=== PATIENT | male | born 1995 | race Caucasian/White ===

== ENCOUNTER 2020-01-17 04:18 | Emergency (ER) | payer BC, SELFPAY ==
--- NOTE | ~2020-01-17 | XR_ITS ---
XR chest 2V DATE: 01/17/2020 04:51 INDICATION: Midsternal and left-sided chest pain, left arm pain and shortness of breath for 2 hours TECHNIQUE: PA and lateral views COMPARISON: 03/10/2012 two-view chest FINDINGS: Normal heart size. No hilar or mediastinal enlargement. No pulmonary infiltrate or consolid ation, pleural effusion or pulmonary vascular congestion or pneumothorax. Included skeletal structure s are unremarkable. IMPRESSION: No active cardiopulmonary disease Reviewed, dictated and finalized at [facility].
--- NOTE | ~2020-01-17 | CT_ITS ---
EXAMINATION: CTA chest PE protocol DATE: 01/17/2020 06:08 INDICATION: Severe pleuritic chest pain TECHNIQUE: Computed tomography angiography (CTA) of the chest was performed with 100 mL Omnipaque-350 intravenous contrast timed to evaluate the pulmonary arteries. Coronal maximum intensity projection 3D-reconstructions were created by the technologist. Automated exposure control and iterative reconst ruction technique were employed. Exam dose: 271.80 mGy-cm total exam DLP. COMPARISON: 01/17/2020 2 view chest FINDINGS: There is diagnostic contrast enhancement of the pulmonary arteries and no evidence of pulmo nary embolism. No thoracic aortic aneurysm or dissection. No hilar or mediastinal mass lesion or lymphadenopathy. Normal heart size. No pericardial or pleural effusion. No pulmonary infiltrate or consolidation or pulmonary mass density is evident. No suspicious osteolytic or osteoblastic lesions. IMPRESSION: No evidence of pulmonary embolism Reviewed, dictated and finalized at [facility]. Reviewed, dictated and finalized at [facility].
[2020-01-17 04:19] VITALS: BP 133/67; PULSE 94; RESP 16; TEMP 37.3; O2SAT 100
--- NOTE | 2020-01-17 04:20 | ED.CHESTPAIN ---
HPI - Chest Pain General Chief Complaint: Chest Pain <Vira Sanchez MD - Last Filed: 01/17/20 07:00> Stated Complaint: chest pain <Vira Sanchez MD - Last Filed: 01/17/20 07:00> Time Seen by Provider: 01/17/20 04:19 <Vira Sanchez MD - Last Filed: 01/17/20 07:00> Source: patient <Vira Sanchez MD - Last Filed: 01/17/20 07:00> Mode of arrival: ambulatory <Vira Sanchez MD - Last Filed: 01/17/20 07:00> Limitations: no limitations <Vira Sanchez MD - Last Filed: 01/17/20 07:00> History of Present Illness HPI narrative: Patient is a 25-year-old male who presents for evaluation of chest pain. Patient states chest pain started this evening approximately 2 hours ago while the patient was out drinking with friends. Patient states he has had 10 alcoholic beverages this evening. Patient denies any falls or chest wall trauma. Patient denies palpitations, nausea, shortness of breath. Patient reports pain with a deep breath, and pain when he pushes on his chest. Pain with bending and lifting. Pain is dull, aching in nature, sharp with a deep breath. Patient has a history of coronary artery disease. His father from a young age of a stroke. Patient denies any cocaine use. <Vira Sanchez MD - Last Filed: 01/17/20 07:00> Related Data Home Medications: Home Medications Medication Instructions Recorded Confirmed No Home Medications 01/17/20 01/17/20 <Vira Sanchez MD - Last Filed: 01/17/20 07:00> Allergies/Adverse Reactions: Allergies Allergy/AdvReac Type Severity Reaction Status Date / Time No Known Allergies Allergy Verified 01/17/20 07:32 <Vira Sanchez MD - Last Filed: 01/17/20 07:00> Review of Systems Review of Systems: Narrative: CONSTITUTIONAL: Denies fever, chills, or sweats. EYES: Denies visual changes, redness, or discharge. ENT: Reports mild congestion, denies sore throat CARDIOVASCULAR: Reports chest pain, denies palpitations, no edema RESPIRATORY: Denies cough or dyspnea. GASTROINTESTINAL: Denies abdominal pain, nausea, vomiting, or diarrhea. GENITOURINARY: Denies dysuria or hematuria. SKIN: Denies rash or itching. MUSCULOSKELETAL: Denies back pain, joint pain, or myalgia. NEUROLOGIC: Denies headache, numbness, or weakness. <Vira Sanchez MD - Last Filed: 01/17/20 07:00> [facility] Past Medical History Medical History: Medical History (Updated 01/17/20 @ 06:56 by Vira Sanchez MD) No pertinent past medical history <Vira Sanchez MD - Last Filed: 01/17/20 07:00> Surgical History Surgical History: Surgical History (Updated 01/17/20 @ 04:32 by Vira Sanchez MD) History of tonsillectomy <Vira Sanchez MD - Last Filed: 01/17/20 07:00> Family History Family History: Family History (Updated 06/05/18 @ 13:48 by DOCTOR UNKNOWN) Mother Diabetes mellitus Father Family history of cardiovascular disease Family history of kidney disease Other Family history of attention deficit hyperactivity disorder (ADHD) Family history of bipolar disorder <Vira Sanchez MD - Last Filed: 01/17/20 07:00> Social History Social History: Social History (Updated 01/17/20 @ 04:33 by Vira Sanchez MD) Smoking status: Never smoker Alcohol intake: current Alcohol use details: social Substance use: current Substance use type: marijuana Gender identity (if verbalized by the patient): Male <Vira Sanchez MD - Last Filed: 01/17/20 07:00> Exam Narrative: Exam Narrative: GENERAL: Awake, alert, conversant HEAD: Normocephalic, atraumatic. EYES: PERRLA and EOMI. ENT: Nares clear, no rhinorrhea or epistaxis. Mucous membranes moist. NECK: Supple. CHEST: No respiratory distress, breathing even and non labored, reproducible chest wall tenderness over the left chest, this exactly reproduces pain. No ecchymoses, no crepitus HEART: Regular rate, sinus rhythm ABDO
--- NOTE | 2020-01-17 04:31 | ECG_ITS ---
Measurements Intervals [place] Rate: 88 P: 71 NV: 145 QRS: 57 QRSD: 110 T: 42 QT: 343 QTc: 416 Interpretive Statements SINUS RHYTHM ST ELEVATION IN DIFFUSE LEADS, PROBABLY EARLY REPOLARIZATION BORDERLINE ECG Electronically Signed On 01-17-2020 7:13:31 CDT by Blas Hill D.O.
[2020-01-17] MEDS: ASPIRIN 81 MG CHEWABLE TABLET 324 MG PO (04:36)
[2020-01-17] MEDS: ONDANSETRON INJ 4 MG/2 ML VIAL IV PUSH (04:36)
[2020-01-17] MEDS: MORPHINE SULFATE 4 MG/ML INJ IV PUSH (04:36)
[2020-01-17] MEDS: SODIUM CHLORIDE 0.9% IV 1,000 ML 999 ML IV CONT (04:50)
[2020-01-17 05:00] LABS: Basophils Absolute Auto 0.1 K/mm3 (0.0-0.1); Basophils Percent Auto 0.5 % (0.2-1.2); Eosinophils Absolute Auto 0.2 K/mm3 (0-0.3); Eosinophils Percent Auto 2.2 % (0-4.4); Hematocrit 41.4 % (42.0-52.0); Hemoglobin 14.2 g/dL (14.0-18.0); Immature Granulocyte Absolute 0.03 K/mm3 (0.00-0.031); Immature Granulocyte Percent A 0.3 % (0-0.5); Lymphocytes Absolute Auto 2.96 K/mm3 (0.9-3.2); Lymphocytes Percent Auto 31.1 % (18.3-44.2); Mean Corpuscular HGB Conc 34.3 g/dl (32-36); Mean Corpuscular Hemoglobin 31.1 pg (26-34); Mean Corpuscular Volume 90.6 fl (80-100); Mean Platelet Volume 10.3 fl (7.4-10.4); Monocytes Absolute Auto 0.8 K/mm3 (0.1-0.6); Monocytes Percent Auto 8.1 % (2.6-8.5); Neutrophils Absolute Auto 5.5 K/mm3 (1.3-6.7); Neutrophils Percent Auto 57.8 % (45.5-73.1); Platelet Count Result 378 k/mm3 (150-375); Red Blood Count 4.57 M/mm3 (4.6-6.20); Red Cell Distribution Width 12.8 % (11.5-14.5); White Blood Count 9.5 K/mm3 (4.5-10.0)
[2020-01-17 05:12] LABS: Prothrombin Time 12.8 Seconds (11.1-14.7)
[2020-01-17 05:13] LABS: Partial Thromboplastin Time 35.2 SECONDS (22.3-36.8)
[2020-01-17 05:17] LABS: Alanine Aminotransferase 15 U/L (4-50); Albumin Level 4.5 g/dL (3.5-5.1); Alkaline Phosphatase 102 U/L (38-126); Aspartate Amino Transferase 25 U/L (17-59); Bilirubin,Total 0.6 mg/dL (0.2-1.3); Blood Urea Nitrogen 11 mg/dL (9-20); Carbon Dioxide 30 mmol/L (22-30); Chloride 100 mmol/L (98-107); Estimated CRCL calculation 145 ml/min; Estimated Glomerular Filt Rate > 60; Glucose 92 mg/dL (75-110); Sodium 139 mmol/L (137-145)
[2020-01-17 05:20] VITALS: BP 138/87; PULSE 79; RESP 17; O2SAT 99
[2020-01-17 05:20] LABS: Troponin I < 0.012 ng/mL (0.000-0.034)
--- NOTE | 2020-01-17 05:25 | PC.NURSE ---
pt states pain in left side of chest in increasing and is now in his shoulder blade. md notified. md gave this rn verbal order for repeat ekg.
--- NOTE | 2020-01-17 05:26 | ECG_ITS ---
Measurements Intervals [place] Rate: 80 P: 72 WI: 166 QRS: 56 QRSD: 104 T: 43 QT: 359 QTc: 416 Interpretive Statements SINUS RHYTHM NORMAL ECG Electronically Signed On 01-17-2020 7:13:44 CDT by Blas Hill D.O.
[2020-01-17] MEDS: KETOROLAC 15 MG/ML VIAL (*BKC) IV PUSH (06:33)
[2020-01-17 06:42] VITALS: BP 127/60; PULSE 88; RESP 21; O2SAT 97
[2020-01-17 07:33] VITALS: BP 127/58; PULSE 70; RESP 18; O2SAT 97
[2020-01-17 08:59] LABS: Troponin I < 0.012 ng/mL (0.000-0.034)
[2020-01-17 09:38] VITALS: BP 121/57; PULSE 60; RESP 16; O2SAT 98
== END 2020-01-17 09:47 | disposition home or self-care (01) ==
PROVIDERS: Emergency Medicine; Emergency Provider General Practice
DX: R07.89 Other chest pain (principal); R94.31 Abnormal electrocardiogram [ECG] [EKG]
CPT/HCPCS: 36415; 71046; 71275; 80053; 84484; 85025; 85610; 85730; 93005; 96361; 96374; 96375; 99284; A9270; J1885; J2270; J2405; J7030; Q9967

== ENCOUNTER 2020-01-25 08:21 | Emergency (ER) | payer BC, SELFPAY ==
--- NOTE | 2020-01-25 08:36 | ED.GENADULT ---
HPI - General Adult General Chief complaint: Unspecified Stated complaint: Pain in great toe/thumbs/left knee/shoulder Time Seen by Provider: 01/25/20 08:36 Source: patient Mode of arrival: ambulatory Limitations: no limitations History of Present Illness HPI narrative: 25-year-old male patient presents to the [facility] with complaints of joint pain for the past week and a half. Patient states that started one morning when he woke up having stiffness to his right thumb. Patient states that over the weekend his left knee swelled up and felt really warm to the touch. Patient states that he is also been having some tingling to the bottom of his feet, stiffness of the toes and feel like his feet are numb. Patient also states that when he woke up this morning he has been having joint pain to the left shoulder and elbow. Denies any fevers. Patient states he did have a tick bite to his perineal area about 2 to 3 months ago. Patient states that it did swell up about the size of a nickel. Patient states he is also had chills recently. Patient was seen in the ER about a week ago with chest pain which he states that everything came back negative. Patient states he has been taking Tylenol for symptoms which really has not helped much. Related Data Home Medications Medication Instructions Recorded Confirmed No Home Medications 01/17/20 01/25/20 Allergies Allergy/AdvReac Type Severity Reaction Status Date / Time No Known Allergies Allergy Verified 01/25/20 08:28 Review of Systems Review of Systems: Narrative: CONSTITUTIONAL: Denies fever, positive chills, denies sweats. EYES: Denies visual changes, redness, or discharge. ENT: Denies rhinorrhea, congestion, sore throat, or otalgia. CARDIOVASCULAR: Denies chest pain, palpitations, or edema. RESPIRATORY: Denies cough or dyspnea. GASTROINTESTINAL: Denies abdominal pain, nausea, vomiting, or diarrhea. GENITOURINARY: Denies dysuria or hematuria. SKIN: Denies rash or itching. MUSCULOSKELETAL: Denies back pain, positive joint pain, denies myalgia. NEUROLOGIC: Denies headache, positive numbness and tingling to bilateral feet, denies weakness. PSYCHIATRIC: Denies anxiety or depression. [facility] Past Medical History Medical History No pertinent past medical history Surgical History Surgical History History of tonsillectomy Family History Family History Mother Diabetes mellitus Father Family history of cardiovascular disease Family history of kidney disease Other Family history of attention deficit hyperactivity disorder (ADHD) Family history of bipolar disorder Social History Social History Smoking status: Never smoker Alcohol intake: current Substance use: current Substance use type: marijuana Gender identity (if verbalized by the patient): Male Comments At the time of my signature I agree with nursing past medical history, surgical, social, and family history. There is no relevant family history pertinent to the presenting complaint. Exam Narrative: Exam Narrative: GENERAL: Well-appearing, well-nourished, and in no acute distress. HEAD: Normocephalic, atraumatic. EYES: PERRLA and EOMI. ENT: Nares clear, no rhinorrhea or epistaxis. Mucous membranes moist. Posterior pharynx with no erythema, tonsil enlargement, exudates or lesions present. Bilateral TMs are clear no erythema or foreign bodies in the canal. NECK: Supple. No lymphadenopathy CHEST: Clear to auscultation. No respiratory distress. Patient able talk in clear complete sentences. HEART: Regular rate and rhythm. No murmur heard. Normal peripheral pulses. ABDOMEN: Soft, nontender, nondistended, normal active bowel sounds. EXTREMITIES: Patient is able to bear weight and ambulate without
[2020-01-25 08:42] VITALS: BP 131/68; PULSE 91; RESP 16; TEMP 37.2; O2SAT 100
== END 2020-01-25 09:01 | disposition short-term general hospital (02) ==
PROVIDERS: Emergency Provider Nurse Practitioner Family
DX: M25.541 Pain in joints of right hand (principal); M25.512 Pain in left shoulder; M25.522 Pain in left elbow; W57.XXXA Bitten or stung by nonvenomous insect and other nonvenomous arthropods, initial encounter
CPT/HCPCS: 99212; G0463

== ENCOUNTER 2020-01-25 09:18 | Emergency (ER) | payer BC, SELFPAY ==
[2020-01-25 09:28] VITALS: BP 142/93; PULSE 84; RESP 18; TEMP 37.1; O2SAT 100
[2020-01-25 10:00] VITALS: BP 129/89; PULSE 73; RESP 16; O2SAT 100
[2020-01-25 10:45] VITALS: BP 116/63; PULSE 83; RESP 16; O2SAT 100
[2020-01-25 10:47] LABS: Basophils Absolute Auto 0.1 K/mm3 (0.0-0.1); Basophils Percent Auto 0.5 % (0.2-1.2); Eosinophils Absolute Auto 0.2 K/mm3 (0-0.3); Eosinophils Percent Auto 1.7 % (0-4.4); Hematocrit 39.1 % (42.0-52.0); Hemoglobin 13.2 g/dL (14.0-18.0); Immature Granulocyte Absolute 0.04 K/mm3 (0.00-0.031); Immature Granulocyte Percent A 0.3 % (0-0.5); Lymphocytes Absolute Auto 2.41 K/mm3 (0.9-3.2); Lymphocytes Percent Auto 19.3 % (18.3-44.2); Mean Corpuscular HGB Conc 33.8 g/dl (32-36); Mean Corpuscular Volume 91.8 fl (80-100); Mean Platelet Volume 9.9 fl (7.4-10.4); Monocytes Absolute Auto 1.1 K/mm3 (0.1-0.6); Neutrophils Absolute Auto 8.6 K/mm3 (1.3-6.7); Neutrophils Percent Auto 69.2 % (45.5-73.1); Platelet Count Result 397 k/mm3 (150-375); Red Blood Count 4.26 M/mm3 (4.6-6.20); Red Cell Distribution Width 12.7 % (11.5-14.5); White Blood Count 12.5 K/mm3 (4.5-10.0)
[2020-01-25 10:59] LABS: Alanine Aminotransferase 10 U/L (4-50); Albumin Level 4.1 g/dL (3.5-5.1); Alkaline Phosphatase 80 U/L (38-126); Anion Gap 10.6 mmol/L (7-16); Aspartate Amino Transferase 19 U/L (17-59); Bilirubin,Total 0.5 mg/dL (0.2-1.3); Blood Urea Nitrogen 9 mg/dL (9-20); Calcium 9.2 mg/dL (8.4-10.2); Carbon Dioxide 29 mmol/L (22-30); Chloride 101 mmol/L (98-107); Estimated CRCL calculation 128 ml/min; Estimated Glomerular Filt Rate > 60; Glucose 100 mg/dL (75-110); Potassium 3.6 mmol/L (3.4-5.0); Sodium 137 mmol/L (137-145)
[2020-01-25 11:04] LABS: Add Urine Microscopic? YES; Appearance Urine Clear (Clear); Bacteria Urine Trace /hpf; Bilirubin Urine Negative (Negative); Blood Urine Negative (Negative); Color Urine Yellow (Yellow); Glucose Urine UA Negative (Negative); Ketones Urine Negative (Negative); Leukocyte Esterase Ur 1+ LEU/UL (Negative); Nitrate Urine Negative (Negative); Protein Urine Negative (Negative); Specific Grav Ur 1.019 (1.001-1.035); Squamous Epithelial Cell Urine Rare /hpf (Few); Transitional Epi Cells Urine Rare /hpf (None Seen); WBC Urine 51-75 /hpf
[2020-01-25 11:21] LABS: Erythrocyte Sedimentation Rate 54 mm/hr (0-20)
[2020-01-25 11:30] VITALS: BP 117/82; PULSE 72; RESP 18; O2SAT 98
[2020-01-25] MEDS: AZITHROMYCIN 250 MG TABLET 1000 MG PO (13:23)
[2020-01-25] MEDS: KETOROLAC 30 MG/ML VIAL (*BKC) (13:24)
[2020-01-25] MEDS: cefTRIAXone 250 MG VIAL IM (13:27)
[2020-01-25] MEDS: LIDOCAINE HCL 1% LOCAL INJ 20 ML VIAL (13:27)
[2020-01-25 13:40] VITALS: BP 132/76; PULSE 72; RESP 18; O2SAT 98
--- NOTE | 2020-01-25 14:43 | ED.GENADULT ---
HPI - General Adult General Chief complaint: Unspecified Stated complaint: pAINS TO LOWER HALF OF BODY X 1 WK Time Seen by Provider: 01/25/20 10:11 Source: patient Mode of arrival: ambulatory Limitations: no limitations History of Present Illness HPI narrative: Patient presents with chief complaint of progressive pain that has traveled down the left side in his joints over the past week and a half. Patient states that he began his left thumb, then shoulder, knee and his foot. Patient denies any trauma to this areas. Patient states he is also felt some fatigue. Patient states for months ago he was bit on his penis by a tick and it was swollen for 2 to 3 weeks but has since resolved. Patient denies any rash, fever, nausea, vomiting, diarrhea. Patient denies any new medications, penile discharge, concern for STDs, urinary symptoms. Patient states that he has been in a monogamous relationship for the past 6 months but does have unprotected sex. Related Data Allergies Allergy/AdvReac Type Severity Reaction Status Date / Time No Known Allergies Allergy Verified 01/25/20 08:28 Review of Systems Review of Systems: Narrative: CONSTITUTIONAL: Reports fatigue denies fever, chills, or sweats. EYES: Denies visual changes, redness, or discharge. ENT: Denies rhinorrhea, congestion, sore throat, or otalgia. CARDIOVASCULAR: Denies chest pain, palpitations, or edema. RESPIRATORY: Denies cough or dyspnea. GASTROINTESTINAL: Denies abdominal pain, nausea, vomiting, or diarrhea. GENITOURINARY: Denies dysuria or hematuria. SKIN: Denies rash or itching. MUSCULOSKELETAL: Reports migrating joint pain denies back pain or myalgia. NEUROLOGIC: Denies headache, numbness, dizziness, or weakness. PSYCHIATRIC: Denies anxiety or depression. [facility] Social History Social History Smoking status: Never smoker Alcohol intake: current Substance use: current Substance use type: marijuana Gender identity (if verbalized by the patient): Male Exam Narrative: Exam Narrative: GENERAL: Well-appearing, well-nourished, and in no acute distress. HEAD: Normocephalic, atraumatic. EYES: PERRLA and EOMI. ENT: Nares clear, no rhinorrhea or epistaxis. Mucous membranes moist. Oropharynx without tonsillar hypertrophy exudate or other lesions. Bilateral TMs pearly gonzalez nonbulging NECK: Supple. No adenopathy or masses. No carotid bruits or JVD CHEST: Clear to auscultation. No respiratory distress. No wheezes rales or rhonchi HEART: Regular rate and rhythm. . EXTREMITIES: Normal range of motion. No edema. No erythema or increased heat noted to the joints. There is no pain with palpation of the joints. SKIN: Warm, dry, no rash. There are no rashes, lesions, vesicles or other sources of hypertension. There is no sign of discharge coming from the penis nor sores, erythema or other signs of infection or injury. NEURO: No focal deficits. Alert and oriented x3. PSYCH: Normal mood and affect. Course Vital Signs Vital signs: Vital Signs Temperature 98.7 F 01/25/20 09:28 Pulse Rate 84 01/25/20 09:28 Respiratory Rate 18 01/25/20 09:28 Blood Pressure 142/93 H 01/25/20 09:28 Pulse Oximetry 100 01/25/20 09:28 Temperature 98.7 F 01/25/20 09:28 Pulse Rate 72 01/25/20 13:40 Respiratory Rate 18 01/25/20 13:40 Blood Pressure 132/76 01/25/20 13:40 Pulse Oximetry 98 01/25/20 13:40 Medical Decision Making [facility] Narrative Medical decision making narrative: Consulted with Dr. Kinney regarding the patient. He states that he is not of a concern for tickborne diseases. He states the patient can follow-up with primary care and does not need to follow-up with him. Informed patient that gonorrhea chlamydia is in the differential and we will treat him in emergency department. We will also put the patient on Cipro due to bacteria in his urine. Informed him that he needs to follow-up with his primary ca
== END 2020-01-25 13:45 | disposition home or self-care (01) ==
PROVIDERS: Physician Assistant; Emergency Provider Emergency Medicine
DX: N39.0 Urinary tract infection, site not specified (principal); M25.512 Pain in left shoulder; M25.542 Pain in joints of left hand; M25.562 Pain in left knee; M25.572 Pain in left ankle and joints of left foot
CPT/HCPCS: 36415; 80053; 81001; 84443; 85025; 85652; 87086; 87491; 87591; 87801; 96372; 96374; 99284; A9270; J0696; J1885